=== PATIENT | male | born 1995 | race African-American/Black ===

== ENCOUNTER 2022-01-06 03:19 | Emergency (ER) | payer MEDICAID ==
[~2022-01-06] VITALS: Ht 185.4 cm; Wt 86.0 kg
[2022-01-06] MEDS ORDERED: LORAZEPAM 2MG/ML CPJ IM ONE (04:30)
[2022-01-06] MEDS ORDERED: HALOPERIDOL LACTATE 5MG/ML VIAL IM ONE (04:30)
[2022-01-06] MEDS ORDERED: DIPHENHYDRAMINE 50MG/ML VIAL IM ONE (04:30)
[2022-01-06 06:48] LABS: HEMATOCRIT. 43.6 % (42.0-52.0); HEMOGLOBIN. 14.8 g/dL (14.0-18.0); MEAN CORPUSCULAR HEMOGLOBIN 29.5 pg (28.0-32.0); MEAN CORPUSCULAR VOLUME 87.3 fL (80.0-94.0); MEAN PLATELET VOLUME 9.6 fl (7.4-10.4); PLATELET 214 x1000/uL (130-400); RED CELL DISTRIBUTION WIDTH 13.8 % (11.6-14.6)
[2022-01-06 06:59] LABS: CLARITY URINE CLEAR (CLEAR); COLOR URINE YELLOW (YELLOW); KETONES URINE TRACE (NEGATIVE); LEUKOCYTE ESTERASE URINE 1+ (NEGATIVE); NITRITE URINE NEGATIVE (NEGATIVE); OCCULT BLOOD URINE NEGATIVE (NEGATIVE); PROTEIN URINE 1+ (NEGATIVE); SPECIFIC GRAVITY URINE 1.018 (1.005-1.030); UROBILINOGEN URINE 0.2 E.U./dL (0.2-1.0)
[2022-01-06 07:14] LABS: CHLORIDE 101 mEq/L (98-107)
[2022-01-06 07:34] LABS: *AMPHETAMINES SCREEN URINE PRESUMTIVE POSITIVE (NEGATIVE); *BARBITURATES SCREEN URINE NEGATIVE (NEGATIVE); *BENZODIAZEPINES SCREEN URINE NEGATIVE (NEGATIVE); *COCAINE SCREEN URINE PRESUMTIVE POSITIVE (NEGATIVE); CANNABINOID URINE SCREEN PRESUMTIVE POSITIVE (NEGATIVE); METHADONE URINE SCREEN NEGATIVE (NEGATIVE); OPIATES URINE SCREEN NEGATIVE (NEGATIVE); PHENCYCLIDINE URINE SCREEN NEGATIVE (NEGATIVE)
[2022-01-06 07:39] LABS: ETHANOL BLOOD < 10 mg/dL
[2022-01-06 09:28] LABS: NUCLEATED RED BLOOD CELLS 1 /100 WBC
[2022-01-06 09:29] LABS: PLATELET ESTIMATE NORMAL
[2022-01-06 11:00] VITALS: BP 140/77
[2022-01-06] MEDS ORDERED: OLANZAPINE 2.5MG TABLET PO SCH (21:00)
== END 2022-01-06 15:16 | disposition left against medical advice (07) ==
LOC: ER 03:19
DX: R45.851 Suicidal ideations (principal); J45.909 Unspecified asthma, uncomplicated; Z20.822 Contact with and (suspected) exposure to COVID-19
CPT/HCPCS: 36415; 80053; 80305; 80320; 81003; 85025; 96372; 99284; C9803; J1200; J1630; J2060; U0003; U0005; Z7610; G0480